=== PATIENT | male | born 1980 | race Caucasian/White ===

== ENCOUNTER 2017-02-27 13:36 | Emergency (ER) | payer MEDICAID ==
[~2017-02-27] VITALS: Ht 175.3 cm; Wt 58.4 kg
[2017-02-27] MEDS ORDERED: LORazepam 1MG TABLET PO ONE (15:00)
[2017-02-27 15:25] LABS: BLOOD UREA NITROGEN 30 mg/dL (7-18)
[2017-02-27 15:28] LABS: ASPARTATE AMINO TRANSFERASE 58 U/L (15-37)
[2017-02-27 15:37] LABS: ACETAMINOPHEN < 2 mcg/mL (10-30)
[2017-02-27 15:42] LABS: HIV 1&2 ANTIBODY SCREEN Nonreactive (Nonreactive); HIV-1 p24 ANTIGEN Nonreactive (Nonreactive)
[2017-02-27] MEDS ORDERED: LORazepam 1MG TABLET ONE (16:41)
[2017-02-27 16:46] LABS: DAU SCREEN DISCLAIMER
[2017-02-27 17:55] VITALS: BP 116/72
== END 2017-02-27 19:04 | disposition home or self-care (01) ==
LOC: ED 15:33
DX: F15.20 Other stimulant dependence, uncomplicated (principal); Z00.00 Encounter for general adult medical examination without abnormal findings
CPT/HCPCS: 36415; 80053; 80307; 80329; 85025; 86703; 86704; 86706; 86708; 86803; 87340; 87899; 99284; G0435; G0480